=== PATIENT | male | born 1980 | race Caucasian/White ===

== ENCOUNTER 2016-11-25 01:10 | Emergency (ER) | payer OTHER ==
[2016-11-25 01:20] VITALS: BP 147/105
--- NOTE | 2016-11-25 02:29 | EDM.PDOC ---
ED HPI GENERAL MEDICAL PROBLEM - General Chief Complaint: Upper Extremity Injury/Pain Stated Complaint: POSS BROKEN COLLAR BONE AND HEAD INJURY Time Seen by Provider: 11/25/16 01:20 Source of Information: Reports: Patient, RN Notes Reviewed History Limitations: Reports: No Limitations - History of Present Illness INITIAL COMMENTS - FREE TEXT/NARRATIVE: The patient states that he was playing [employer] sack on the street, and that he tripped over the curb, around 21:00 tonight, landing on his left shoulder and striking the left side of his head. He presents with left shoulder and collarbone pain, along with abrasions to his left scalp. The patient smells strongly of alcohol. He states that he had 6 beers tonight. He does not have a PCP. Left Shoulder Pain Score (Numeric/FACES): 9 - Related Data Allergies Allergy/AdvReac Type Severity Reaction Status Date / Time No Known Allergies Allergy Verified 11/25/16 01:21 Home Meds: Home Meds Hydrocodone/Acetaminophen [[place] 5-325] 1 - 2 tab PO Q6H PRN #16 tablet [Rx] Past Medical History - Past Surgical History Musculoskeletal Surgical History: Reports: Arthroscopic Procedure (bilateral wrists) Social & Family History - Family History Family Medical History: Noncontributory - Tobacco Use Smoking Status *Q: Current Every Day Smoker Years of Tobacco use: 22 Packs/Tins Daily: 1 - Alcohol Use Alcohol Use History: Yes Alcohol Use Frequency: Socially - Recreational Drug Use Recreational Drug Use: No - Living Situation & Occupation Living situation: Reports: , with Significant Other (Fianc), with Family (3 kids) 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) ED ROS GENERAL - Review of Systems Review Of Systems: See Below Constitutional: Reports: No Symptoms HEENT: Reports: No Symptoms Respiratory: Reports: No Symptoms Cardiovascular: Reports: No Symptoms Endocrine: Reports: No Symptoms GI/Abdominal: Reports: No Symptoms : Reports: No Symptoms Musculoskeletal: Reports: No Symptoms Skin: Reports: No Symptoms Neurological: Reports: No Symptoms Psychiatric: Reports: No Symptoms Hematologic/Lymphatic: Reports: No Symptoms Immunologic: Reports: No Symptoms ED EXAM, GENERAL - Physical Exam Exam: See Below Exam Limited By: No Limitations General Appearance: Alert, WD/WN, No Apparent Distress, Other (Strong smell of alcohol) Eye Exam: Bilateral Eye: EOMI, Nystagmus (with bilateral lateral gazes), PERRL Ears: Normal External Exam, Normal Canal, Hearing Grossly Normal, Normal TMs Ear Exam: Bilateral Ear: Auricle Normal, Canal Normal, TM normal Nose: Normal Inspection, Normal Mucosa, No Blood Throat/Mouth: Normal Inspection, Normal Lips, Normal Teeth, Normal Gums, Normal Oropharynx, Normal Voice, No Airway Compromise Head: Normocephalic, Other (Abrasion to the left jewish area and deep scratch ( does not require closure) with abrasion to the left parietal area) Neck: Normal Inspection, Supple, Non-Tender, Full Range of Motion Respiratory/Chest: No Respiratory Distress, Lungs Clear, Normal Breath Sounds, No Accessory Muscle Use, Other (Left clavicle deformity. No tenting.) Cardiovascular: Normal Peripheral Pulses, Regular Rate, Rhythm, No Gallop, No JVD, No Murmur, No Rub Peripheral Pulses: 4+: Radial (L), Radial (R) GI/Abdominal: Normal Bowel Sounds, Soft, Non-Tender, No Organomegaly, No Distention, No Abnormal Bruit, No Mass (Male) Exam: Deferred Rectal (Males) Exam: Deferred Back Exam: Normal Inspection, Full Range of Motion, NT Extremities: Normal Inspection, Normal Range of Motion, No Pedal Edema, Normal Capillary Refill Neurological: Alert, Oriented, Normal Cognition, No Motor/Sensory Deficits Psychiatric: Normal Affect Skin Exam: Warm, Dry, Intact, Normal Color, No Rash Lymphatic: No Adenopathy Course - Vital Signs Last Recorded V/S: Last Vital Signs Temp 37.0 C 11/25/16 01:16 Pulse 100 11/25/16 01:16 Resp 16 11/25/16 01:16 BP 147/105 H 11/25/16 01:16 Pulse Ox 99 11/25/16 01:16 - Orders/Labs/Meds Orders: Active Orders 24 hr Category Date Time Status Chest 2V [CR] Stat Exams 11/25/16 01:43 Taken Clavicle Lt [CR] Stat Exams 11/25/16 01:43 Taken Head wo Cont [CT] Stat Exams 11/25/16 01:44 Taken DME for Discharge [COMM] Stat Oth 11/25/16 03:40 Ordered Labs: Laboratory Tests 11/25/16 11/25/16 Range/Units 01:55 01:55 WBC 7.89 (4.23-9.07) K/mm3 RBC 4.92 (4.63-6.08) M/mm3 Hgb 15.5 (13.7-17.5) gm/L Hct 45.1 (40.1-51.0) % MCV 91.7 (79.0-92.2) fl MCH 31.5 (25.7-32.2) pg MCHC 34.4 (32.2-35.5) g/dl RDW Std Deviation 43.5 (35.1-43.9) fL Plt Count 226 (163-337) K/mm3 MPV 10.0 (9.4-12.3) fl Neutrophils % (Manual) 64 H (40-60) % Band Neutrophils % 0 (0-10) % Lymphocytes % (Manual) 29 (20-40) % Atypical Lymphs % 0 % Monocytes % (Manual) 6 (2-10) % Eosinophils % (Manual) 1 (0.8-7.0) % Basophils % (Manual) 0 L (0.2-1.2) Platelet Estimate Adequate RBC Morph Comment Normal Sodium 143 (136-145) mEq/L Potassium 3.3 L (3.5-5.1) mEq/L Chloride 106 (98-107) mEq/L Carbon Dioxide 23 (21-32) mEq/L Anion Gap 17.3 H (5-15) BUN 10 (7-18) mg/dL Creatinine 1.0 (0.7-1.3) mg/dL Est Cr Clr Drug Dosing 115.41 mL/min Estimated GFR (MDRD) > 60 (>60) mL/min BUN/Creatinine Ratio 10.0 L (14-18) Glucose 110 H (74-106) mg/dL Calcium 8.3 L (8.5-10.1) mg/dL Total Bilirubin 0.4 (0.2-1.0) mg/dL AST 26 (15-37) U/L ALT 43 (16-63) U/L Alkaline Phosphatase 84 (46-116) U/L Total Protein 7.5 (6.4-8.2) g/dl Albumin 4.1 (3.4-5.0) g/dl Globulin 3.4 gm/dL Albumin/Globulin Ratio 1.2 (1-2) Ethyl Alcohol 0.21 (0.00) gm% Meds: Medications Discontinued Medications Generic Name Dose Route Start Last Admin Trade Name Freq PRN Reason Stop Dose Admin Ibuprofen 600 mg 11/25/16 03:42 11/25/16 03:50 Motrin PO 11/25/16 03:43 600 mg ONETIME ONE Administration - Radiology Interpretation Free Text/Narrative:: 2-view radiographs of the left clavicle appeared to demonstrate a completely displaced mid-shaft clavicle fracture. Formal read per the Radiologist pending. Two-view chest radiograph reviewed. Cardiac silhouette is within normal limits. No pulmonary vascular congestion. No pleural effusions. No focal infiltrate. No pneumothorax. Mid-shaft left clavicle fracture noted. Formal read per the Radiologist pending. CT of the head without contrast is read by [facility] as "No acute intracranial pathology." - Re-Assessments/Exams Free Text/Narrative Re-Assessment/Exam: 11/25/16 03:38 The patient's clavicle fracture will require surgical repair. For tonight's purposes, I gave the patient the option of either a shoulder sling or figure of 8 strap. The patient does not have a preference, therefore I have ordered a shoulder sling, which is more comfortable, although does not allow the use of his left upper extremity. The patient was advised that he will need to perform some elbow range of motion to prevent stiffness. As the patient is intoxicated, he was not given opioid analgesia here, although he did not ask for it, either. I will prescribe some [place], and refer the patient to Dr. Ren. He [facility] Departure - Departure Time of Disposition: 03:40 Disposition: Home, Self-Care 01 Condition: Fair Clinical Impression: Closed left clavicular fracture, Scalp abrasion, Alcohol intoxication - Discharge Information Prescriptions: Hydrocodone/Acetaminophen [[place] 5-325] 1 - 2 tab PO Q6H PRN #16 tablet PRN Reason: Pain (Severe 7-10) Instructions: Clavicle Fracture (Shaft) With Rehab[facility] Referrals: PCP,None [Primary Care Provider] - Andrea Ren MD [Physician] - Forms: ED Department Discharge Additional Instructions: You were seen in the emergency room after falling, injuring your left shoulder and left scalp. Workup in the ER included blood work, a CT scan of your head, x-rays of your left collarbone, and a chest x-ray. The x-ray of your collarbone confirms that you have broken your collarbone. Given the severity of it, it will require surgery to repair. Your alcohol level was found to be significantly elevated at 0.21, nearly 3 times the legal limit for driving. The remainder of your workup was unremarkable. Your left arm has been placed into an arm sling. Wear this during the day, however, it is important that you flex and extend your left elbow from time to time, to prevent it from getting stiff. Keep your scalp wounds clean with ordinary soap and water. Take [id number] ibuprofen 2-3 tablets (400-600 mg) every 8 hours, with food, as needed for pain. You may take 1-2 tablets of [place] every 6 hours, as needed for pain not relieved by ibuprofen. If you take [place], do not drive or operate heavy machinery. [place] will likely cause constipation, so consider taking a stool softener. Follow-up with the orthopedic surgeon Dr. Ren at the next available appointment , to arrange for surgical repair of your collarbone. If any other problems, please do not hesitate to return to the ER. - My Orders Last 24 Hours: My Active Orders 11/25/16 01:43 Chest 2V [CR] Stat Clavicle Lt [CR] Stat 11/25/16 01:44 Head wo Cont [CT] Stat 11/25/16 03:40 DME for Discharge [COMM] Stat - Assessment/Plan Last 24 Hours: My Active Orders 11/25/16 01:43 Chest 2V [CR] Stat Clavicle Lt [CR] Stat 11/25/16 01:44 Head wo Cont [CT] Stat 11/25/16 03:40 DME for Discharge [COMM] Stat
[2016-11-25] MEDS ORDERED: Ibuprofen 600 MG Tab PO ONE (03:42)
--- NOTE | 2016-11-25 09:06 | CR ---
Chest: Two views of the chest were obtained. Comparison: No previous chest x-ray. Left clavicle fracture is again noted. Heart size and mediastinum are normal. Lungs are clear. Minimal scoliosis is present within the spine. Impression: 1. Left clavicle fracture is again noted. 2. Nothing acute is otherwise seen on two-view chest x-ray. Diagnostic code #3
--- NOTE | 2016-11-25 09:06 | CT ---
Head CT Technique: Multiple axial sections through the brain were obtained. Intravenous contrast was not utilized. Comparison: No previous intracranial imaging. Findings: Ventricles along with basal cisterns and sulci over the convexities are within normal limits for the patient's age. No abnormal parenchymal densities are seen. No evidence of intracranial hemorrhage. No midline shift or mass effect is seen. Slight soft tissue swelling noted within the left parietal scalp. Bone window settings were reviewed which show minimal mucosal thickening within the ethmoid sinuses which is incidental. No acute calvarial abnormality is seen. Impression: 1. Minimal sinus findings which are felt to be incidental. Mild soft tissue swelling within the left scalp. 2. No acute intracranial abnormality is seen. No skull fracture is identified. Diagnostic code #2 Agree with preliminary report issued by [employer] (preliminary [facility] report dictated on 11/25/16, 3:49 AM Central Time)
--- NOTE | 2016-11-25 09:06 | CR ---
Left clavicle: Two views of the left clavicle were obtained. Comparison: No previous study. Slightly comminuted and displaced fracture seen within the mid one third shaft of the clavicle. Foreshortening is seen with overlapping fragments. Spurring is noted off the distal clavicle likely representing old healed distal clavicle fracture. No additional abnormality is seen. Impression: 1. Left clavicle fracture as described above and other incidental findings. Diagnostic code #3
== END 2016-11-25 04:23 | disposition home or self-care (01) ==
LOC: JD.ED 01:10
DX: S42.022A Displaced fracture of shaft of left clavicle, initial encounter for closed fracture (principal); S00.01XA Abrasion of scalp, initial encounter; F17.210 Nicotine dependence, cigarettes, uncomplicated; F10.120 Alcohol abuse with intoxication, uncomplicated; W22.8XXA Striking against or struck by other objects, initial encounter; Y93.89 Activity, other specified; Y92.410 Unspecified street and highway as the place of occurrence of the external cause
CPT/HCPCS: 36415; 70450; 71020; 73000; 80053; 85025; 99284; A9270; G0480

== ENCOUNTER → 2016-12-04 | Day surgery (SDC) | payer OTHER ==
[~2016-12-04] MED LIST: Albuterol 0.083% 2.5 MG/3 ML Neb Soln NEB ONE; Bupivacaine 0.25% 30 ML SDV ONE; HYDROmorphone 0.5 MG/0.5 ML Syringe IVPUSH PRN; HYDROmorphone 1 MG/ML Syringe ONE; Lactated Ringers 1,000 ML IV SCH; Lidocaine 1%/Sod Bicarbonate in NS 8.4% 1 ML Syringe PRN; Midazolam 1 MG/ML 2 ML SDV ONE; Propofol 200 MG/20 ML SDV ONE; Sodium Chloride 0.9% 10 ML Syringe FLUSH PRN; fentaNYL 100 MCG/2 ML SDV ONE
--- NOTE | 2016-12-04 12:43 | PCM.PREANE ---
Preanesthetic Assessment - Anesthesia/Transfusion/Family Hx Anesthesia History: Prior Anesthesia Without Reaction Family History of Anesthesia Reaction: No Transfusion History: No Prior Transfusion(s) - Review of Systems General: No Symptoms Pulmonary: No Symptoms Cardiovascular: No Symptoms Gastrointestinal: No symptoms Neurological: No Symptoms Other: Reports: None - Physical Assessment NPO Status Date: 12/03/16 NPO Status Time: 22:00 Pulse: 93 O2 Sat by Pulse Oximetry: 94 Respiratory Rate: 16 Blood Pressure: 156/88 Temperature: 37.3 C Vital Signs: Last Vital Signs Temp 37.3 C 12/04/16 11:30 Pulse 93 12/04/16 11:30 Resp 16 12/04/16 11:30 BP 156/88 H 12/04/16 11:30 Pulse Ox 94 L 12/04/16 11:30 Height: 1.85 m Weight: 89.358 kg ASA Class: 2 Mental Status: Alert & Oriented x3 Airway Class: Mallampati = 1 Dentition: Reports: Normal Dentition Thyro-Mental Finger Breadths: 3 Mouth Opening Finger Breadths: 3 ROM/Head Extension: Full Lungs: Clear to auscultation, Normal respiratory effort Cardiovascular: Regular Rate, Regular Rhythm, No Murmurs - Lab Values: Laboratory Last Values Sodium 136 mEq/L (136-145) 11/28/16 10:29 Potassium 4.0 mEq/L (3.5-5.1) 11/28/16 10:29 Chloride 102 mEq/L (98-107) 11/28/16 10:29 Carbon Dioxide 28 mEq/L (21-32) 11/28/16 10:29 Anion Gap 10.0 (5-15) 11/28/16 10:29 BUN 16 mg/dL (7-18) 11/28/16 10:29 Creatinine 1.0 mg/dL (0.7-1.3) 11/28/16 10:29 Est Cr Clr Drug Dosing 115.41 mL/min 11/28/16 10:29 Estimated GFR (MDRD) > 60 mL/min (>60) 11/28/16 10:29 BUN/Creatinine Ratio 16.0 (14-18) 11/28/16 10:29 Glucose 89 mg/dL (74-106) 11/28/16 10:29 Calcium 8.9 mg/dL (8.5-10.1) 11/28/16 10:29 MRSA (PCR) Negative 11/28/16 10:29 - Allergies Allergies/Adverse Reactions: Allergies Allergy/AdvReac Type Severity Reaction Status Date / Time No Known Allergies Allergy Verified 11/25/16 01:21 - Blood Blood Available: No Product(s) Available: None - Anesthesia Plan Pre-Op Medication Ordered: None - Acknowledgements Anesthesia Type Planned: General Anesthesia Pt an Appropriate Candidate for the Planned Anesthesia: Yes Alternatives and Risks of Anesthesia Discussed w Pt/Guardian: Yes Pt/Guardian Understands and Agrees with Anesthesia Plan: Yes PreAnesthesia Questionnaire - Past Health History Medical/Surgical History: Denies Medical/Surgical History Respiratory History: Reports: Asthma Other Respiratory History: asthma as a child. no exacerbations since Other Musculoskeletal History: left wrist arthroscopy Other Dermatologic History: alopecia - Past Surgical History Neurological Surgical History: Reports: Other (See Below) Other Neurological Surgeries/Procedures: lumbar spine discectomy - SUBSTANCE USE Smoking Status *Q: Current Every Day Smoker Tobacco Use Within Last Twelve Months: Cigarettes Second Hand Smoke Exposure: Yes Days Per Week of Alcohol Use: 4 Number of Drinks Per Day: 2 Total Drinks Per Week: 8 Recreational Drug Use History: No - HOME MEDS Home Medications: Home Meds Hydrocodone/Acetaminophen [[place] 5-325] 1 - 2 tab PO Q6H PRN #16 tablet [Rx] Cyclobenzaprine [Flexeril] 10 mg PO Q12HR PRN 12/03/16 [History] - CURRENT (IN HOUSE) MEDS Current Meds: Current Medications Albuterol (Proventil Neb Soln) 2.5 mg NEB ONETIME ONE Stop: 12/04/16 12:46 Lactated Ringer's (Ringers, Lactated) 1,000 mls @ 125 mls/hr IV ASDIRECTED GINO Stop: 12/04/16 23:00 Last Admin: 12/04/16 11:50 Dose: 125 mls/hr Lidocaine/Sodium Bicarbonate (Buffered Lidocaine 1% In Ns 8.4%) 0.25 ml .XX ONETIME PRN PRN Reason: Prior to IV Start Stop: 12/04/16 18:00 Last Admin: 12/04/16 11:49 Dose: 0.25 ml Sodium Chloride (Saline Flush) 10 ml FLUSH ASDIRECTED PRN PRN Reason: Keep Vein Open Stop: 12/04/16 18:00
--- NOTE | 2016-12-04 17:01 | PCM.POSTAN ---
POST ANESTHESIA ASSESSMENT - MENTAL STATUS Mental Status: alert, oriented - VITAL SIGNS Pulse Rate: 110 SaO2: 98 Resp Rate: 17 Blood Pressure: 161/99 Temperature: 100.6 C - RESPIRATORY Respiratory Status: respiratory rate WNL, airway patent, O2 saturation stable - CARDIOVASCULAR CV Status: blood pressure stable, elevated pulse rate - GASTROINTESTINAL GI Status: no symptoms - PAIN Pain Score: 4 - POST OP HYDRATION Hydration Status: adequate & stable
[2016-12-04] MEDS: fentaNYL 100 MCG/2 ML SDV IVPUSH PRN ×2 (17:05→17:40)
[2016-12-04 18:28] VITALS: BP 143/88
--- NOTE | 2016-12-05 07:45 | PCM.OPNOTE ---
- General Post-Op/Procedure Note Date of Surgery/Procedure: 12/04/16 Operative Procedure(s): open reduction internal fixation of left clavicle shaft fracture Pre Op Diagnosis: left midshaft clavicle fracture Post-Op Diagnosis: Same Anesthesia Technique: General ET tube, Local Primary Surgeon: Andrea Ren Anesthesia Provider: Carlos Alberto Lomas Service Desk Manager: Lorna Jon EBL in mLs: 100 Complications: None Condition: Good Free Text/Narrative:: Intake & Output 12/04/16 12/05/16 12/05/16 22:59 06:59 14:59 Intake Total 530 Balance 530
--- NOTE | 2016-12-05 08:21 | OR ---
DATE OF OPERATION: 12/04/2016 SURGEON: Andrea Ren MD OPERATION PERFORMED: Open reduction and internal fixation, left clavicle shaft fracture. PREOPERATIVE DIAGNOSIS: Left midshaft clavicle fracture with butterfly fragment. POSTOPERATIVE DIAGNOSIS: Left midshaft clavicle fracture with butterfly fragment. ANESTHESIA: General endotracheal intubation with local. ANESTHESIA PROVIDER: Carlos Alberto Lomas MD. [employer] SIDING INSTALLER: RODNEY Cobian. ESTIMATED BLOOD LOSS: 100 mL. COMPLICATIONS: None. CONDITION: Stable. DESCRIPTION OF PROCEDURE: The patient was identified in the preoperative holding area. Proper site was marked and identified by the surgeon. The patient was taken back to the operating theater. After adequate anesthesia, the patient was placed supine on a radiolucent flat top table. The left shoulder was then sterilely prepped and draped in the usual sterile fashion. OR time-out was performed. The patient received 2 g IV Ancef. At this time, a standard incision was made anteriorly to the clavicle, this was taken down to the platysma which was incised and the clavipectoral fascia was then incised. The fracture site was identified. There was noted to be a butterfly fragment. The main 2 fragments were reduced and a K- wire was placed across them. Next, the butterfly fragment was placed and a 2.7 screw was lagged to the lateral fragment, lagged by design using an over drill bit. At this time, another lag screw was placed between the 2 main fragments with another 2.7 lag screw by lag by technique. A [place] bridging, locking clavicle plate was then placed, 8 hole, and it was found to have adequate coverage of the fracture site as well as adequate contour under C-arm fluoroscopy, both on superior and anterior views. At this time, a nonlocking screw was placed on the medial side and then a compression screw was placed in a lateral side. Next, 2 more locking screws were placed on the medial side and 2 more 3.5 mm locking screws were placed on the lateral side and was found to have adequate fixation and good compression of the plate to the fracture site. At this time, adequate saline was irrigated through the wound. At this time, Vitoss calcium pyrophosphate was used around the fracture site, as the patient has a significant tobacco use history. At this time, the platysmal level was closed with 0 Vicryl, 3-0 Vicryl was used subcutaneously, and Prineo was used for the skin. The patient tolerated the procedure well and sent to PACU in stable condition. MMODAL /[id number]
--- NOTE | 2016-12-05 08:37 | CR ---
Left clavicle: Multiple fluoroscopic spot views were obtained utilizing C-arm device of the left clavicle. Comparison: Previous clavicle exam of 11/25/16. Study shows reduction and fixation of previous left clavicle fracture. Plate and screws have been placed across the fracture line. Fluoroscopy time given as 25.6 seconds. Impression: 1. Operative study showing reduction and placement of plate and screws across previous left clavicle fracture. Diagnostic code #2
== END | disposition home or self-care (01) ==
LOC: JD.SDS 11:27
PROVIDERS: ATTEND Orthopaedic Surgery
DX: S42.022A Displaced fracture of shaft of left clavicle, initial encounter for closed fracture (principal); E87.6 Hypokalemia; F17.210 Nicotine dependence, cigarettes, uncomplicated; X58.XXXA Exposure to other specified factors, initial encounter; Z98.890 Other specified postprocedural states
CPT/HCPCS: 23515; 36415; 76000; 80048; 87641; 94664; C1713; C1768; J1170; J2250; J3010; J7120; 01630; J2704; J3490